=== PATIENT | female | born 1975 | race Caucasian/White ===

== ENCOUNTER 2021-08-31 12:54 | Outpatient (CLI) | payer OTHER, SELFPAY ==
--- NOTE | 2021-08-31 13:06 | MM_ITS ---
WS: [id number] BILATERAL 3D TOMOSYNTHESIS DIGITAL SCREENING MAMMOGRAPHY WITH CAD CLINICAL INFORMATION: SCREENING HISTORY: Screening mammogram. No current complaints. COMPARISON: None. TECHNIQUE: Bilateral CC and MLO views. FINDINGS: Scattered fibroglandular densities bilaterally. Incidental lucent centered calcification LEFT breast. No suspicious focal mass, asymmetry, calcifications, or architectural distortion. No evidence of mal ignancy. MM/[place] [id number] IMPRESSION: BI-RADS: 2-Benign FOLLOW UP: 1 Year Follow-up Recommend return to annual screening mammography.
== END 2021-08-31 12:55 | disposition home or self-care (01) ==
LOC: RAD 12:56
PROVIDERS: Visit Provider Nurse Practitioner Family
DX: Z12.31 Encounter for screening mammogram for malignant neoplasm of breast (principal)
CPT/HCPCS: 77063; 77067

== ENCOUNTER → 2022-07-13 09:00 | Outpatient (BNVA) | payer OTHER, SELFPAY | PROVIDERS: Visit Provider Obstetrics & Gynecology | DX: R63.5 Abnormal weight gain (principal) | CPT/HCPCS: 83036; 83525; 84443 ==

== ENCOUNTER 2022-09-07 11:20 | Outpatient (CLI) | payer OTHER, SELFPAY ==
--- NOTE | 2022-09-07 11:41 | MM_ITS ---
WS: [id number] VIEWS: MLO and CC views both breasts. 3D digital tomosynthesis is also included in this exam. Comparison made with prior exam of 08/31/2021. Findings: There was no sign of mass, architectural distortion or suspicious calcification in either breast. Sc attered areas of fibroglandular density MM/[place] [id number] Impression: BI-RADS: 2-Benign finding. FOLLOW-UP: 1 Year Follow-up This mammogram was also analyzed by the Computer Aided Detection System R2 [employer].
== END 2022-09-07 11:21 | disposition home or self-care (01) ==
LOC: RAD 11:33 → MOBLMAM 11:35
PROVIDERS: PCP Nurse Practitioner Family; Visit Provider Nurse Practitioner Family
DX: Z12.31 Encounter for screening mammogram for malignant neoplasm of breast (principal); M79.672 Pain in left foot; M79.671 Pain in right foot; Q66.89 Other specified congenital deformities of feet
CPT/HCPCS: 73630; 77063; 77067

== ENCOUNTER 2022-12-14 11:06 | Outpatient (CLI) | payer OTHER, SELFPAY ==
--- NOTE | 2022-12-14 11:00 | MR_ITS ---
WS: [id number] MRA HEAD TECHNIQUE: Axial 3-D TOF images obtained with axial images and axial, sagittal, and coronal 2-D refor matted images. CLINICAL INFORMATION: R51.9 - Headache, unspecified COMPARISON: None. FINDINGS: Distal vertebral arteries are patent. Basilar artery is patent. Normal vascularity to the [employer] territo ry bilaterally. Both ICAs are patent at the skull base. Normal vascularity to the PREM and MCA territories bilaterally . No evidence of proximal flow-limiting stenosis or aneurysm. IMPRESSION: Some images slightly degraded by motion artifact. Unremarkable intracranial MRA.
--- NOTE | 2022-12-14 11:15 | MR_ITS ---
WS: [id number] MRI HEAD WITH CONTRAST TECHNIQUE: Sagittal T1, T2 axial, T2 axial FLAIR, axial susceptibility weighted imaging, axial diffus ion weighted images, and coronal T2 images were obtained. Pre and post-T1 axial and post T1 coronal i mages. ADC and FSPGR images. CLINICAL INFORMATION: R51.9 - Headache, unspecified COMPARISON: None. FINDINGS: Some images degraded by motion No evidence of restricted diffusion to suggest acute ischemia. Ventricular system and basilar cistern s are patent. No suspicious intracranial signal normalities. Normal henning-white differentiation. Alice l posterior fossa. Normal vascular flow voids at the skull base. No extra-axial fluid collections. No evidence of mass or mass effect. Paranasal sinuses and mastoid air cells are well aerated. Normal pa rapharyngeal fat. 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 Normal fou rth ventricle. Mild inferior pointing of the cerebellar tonsils. Mild crowding at the foramen magnum. No hydrocephalus. Normal fourth ventricle. Normal optic chiasm and pituitary infundibulum. No hemosiderin on susceptibly weighted images. No abnormal gadolinium enhancement. Normal dural venous sinuses. No other suspicious findings. IMPRESSION: Some images degraded by motion 1. No evidence of restricted diffusion to suggest acute ischemia. 2. 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 Mild c rowding at the foramen magnum. Brainstem signal remains normal. No hydrocephalus. Recommend MRI cervi tamia spine to exclude cervical syrinx. 3. No suspicious intracranial signal normalities considering motion artifact. 4. No abnormal gadolinium enhancement. 5. No hemosiderin on susceptibility-weighted images.
[2022-12-14] MEDS: gadobenate dimeglumine 20 mL vial IV (12:16)
== END 2022-12-14 11:07 | disposition home or self-care (01) ==
LOC: RAD 11:06
PROVIDERS: PCP Nurse Practitioner Family; Visit Provider Psychiatry & Neurology Neurology
DX: G93.5 Compression of brain (principal); R51.9 Headache, unspecified
CPT/HCPCS: 70544; 70553; A9577

== ENCOUNTER → 2023-05-31 07:49 | Outpatient (BNVA) | payer OTHER, SELFPAY | PROVIDERS: PCP Nurse Practitioner Family; Visit Provider Podiatrist Foot & Ankle Surgery | DX: E11.42 Type 2 diabetes mellitus with diabetic polyneuropathy (principal); M21.6X1 Other acquired deformities of right foot; M21.6X2 Other acquired deformities of left foot; M62.469 Contracture of muscle, unspecified lower leg; M65.9 Synovitis and tenosynovitis, unspecified; Z79.84 Long term (current) use of oral hypoglycemic drugs | CPT/HCPCS: 73630 ==

== ENCOUNTER 2023-06-06 06:00 | Outpatient (RCR) | payer OTHER, SELFPAY | END 2023-06-19 23:59 | disposition home or self-care (01) | LOC: WPT 06:00 | PROVIDERS: Visit Provider Podiatrist Foot & Ankle Surgery | DX: M25.579 Pain in unspecified ankle and joints of unspecified foot (principal) | CPT/HCPCS: 97110; 97112; 97140; 97161; 97530 ==

== ENCOUNTER 2023-06-20 06:00 | Outpatient (RCR) | payer OTHER, SELFPAY | END 2023-07-20 23:59 | disposition home or self-care (01) | LOC: WPT 06:00 | PROVIDERS: Visit Provider Podiatrist Foot & Ankle Surgery | DX: M21.6X9 Other acquired deformities of unspecified foot (principal); M65.879 Other synovitis and tenosynovitis, unspecified ankle and foot | CPT/HCPCS: 97110; 97112; 97140; 97530 ==

== ENCOUNTER 2023-07-12 06:00 | Outpatient (RCR) | payer OTHER, SELFPAY | END 2023-07-20 23:59 | disposition home or self-care (01) | LOC: WPT 06:00 | PROVIDERS: Visit Provider Nurse Practitioner Family | DX: M54.12 Radiculopathy, cervical region (principal) | CPT/HCPCS: 97110; 97112; 97140; 97161; 97530 ==

== ENCOUNTER 2023-07-21 06:00 | Outpatient (RCR) | payer OTHER, SELFPAY | END 2023-08-19 23:59 | disposition home or self-care (01) | LOC: WPT 06:00 | PROVIDERS: Visit Provider Nurse Practitioner Family | DX: M54.12 Radiculopathy, cervical region (principal) | CPT/HCPCS: 97110; 97112; 97140; 97530 ==

== ENCOUNTER 2023-07-21 06:00 | Outpatient (RCR) | payer OTHER, SELFPAY | END 2023-08-19 23:59 | disposition home or self-care (01) | LOC: WPT 06:00 | PROVIDERS: Visit Provider Podiatrist Foot & Ankle Surgery | DX: M65.88 Other synovitis and tenosynovitis, other site (principal) | CPT/HCPCS: 97110; 97112; 97140 ==

== ENCOUNTER → 2023-07-30 09:02 | Outpatient (BNVA) | payer OTHER, SELFPAY | PROVIDERS: Visit Provider Podiatrist Foot & Ankle Surgery | DX: E11.42 Type 2 diabetes mellitus with diabetic polyneuropathy; M76.822 Posterior tibial tendinitis, left leg; M62.462 Contracture of muscle, left lower leg; M65.9 Synovitis and tenosynovitis, unspecified; Z79.84 Long term (current) use of oral hypoglycemic drugs | CPT/HCPCS: 73630 ==

== ENCOUNTER 2023-08-13 10:05 | Outpatient (RCR) | payer OTHER, SELFPAY | END 2023-08-14 23:59 | disposition home or self-care (01) | LOC: SPT 10:05 | PROVIDERS: Visit Provider Podiatrist Foot & Ankle Surgery | DX: M21.6X9 Other acquired deformities of unspecified foot (principal); M76.70 Peroneal tendinitis, unspecified leg; E11.42 Type 2 diabetes mellitus with diabetic polyneuropathy; M62.469 Contracture of muscle, unspecified lower leg | CPT/HCPCS: 97161; L3030 ==

== ENCOUNTER 2023-08-20 06:00 | Outpatient (RCR) | payer OTHER, SELFPAY | END 2023-09-19 23:59 | disposition home or self-care (01) | LOC: WPT 06:00 | PROVIDERS: Visit Provider Nurse Practitioner Family | DX: M54.12 Radiculopathy, cervical region (principal) | CPT/HCPCS: 97110; 97112; 97530 ==

== ENCOUNTER 2023-08-20 06:00 | Outpatient (RCR) | payer OTHER, SELFPAY | END 2023-09-19 23:59 | disposition home or self-care (01) | LOC: WPT 06:00 | PROVIDERS: Visit Provider Nurse Practitioner Family | DX: M54.32 Sciatica, left side (principal) | CPT/HCPCS: 97110 ==

== ENCOUNTER 2023-09-20 06:00 | Outpatient (RCR) | payer OTHER, SELFPAY | END 2023-10-20 23:59 | disposition home or self-care (01) | LOC: WPT 06:00 | PROVIDERS: Visit Provider Nurse Practitioner Family | DX: M54.12 Radiculopathy, cervical region (principal) | CPT/HCPCS: 97110; 97112; 97530 ==

== ENCOUNTER 2024-05-15 06:00 | Outpatient (CLI) | payer OTHER, SELFPAY | END 2024-05-15 06:01 | disposition home or self-care (01) | LOC: LAB 05-20 13:50 | PROVIDERS: PCP Family Medicine; Visit Provider Orthopaedic Surgery | DX: Z01.818 Encounter for other preprocedural examination (principal) | CPT/HCPCS: 36415; 80053; 81001; 83036; 85025 ==

== ENCOUNTER 2024-05-29 13:17 | Outpatient (CLI) | payer OTHER, SELFPAY ==
[2024-05-29 13:51] LABS: Estmated Average Glucose 278; Hemoglobin A1C 11.3 % (4.0-6.0)
== END 2024-05-29 13:18 | disposition home or self-care (01) ==
PROVIDERS: PCP Family Medicine; Visit Provider Orthopaedic Surgery
DX: Z01.818 Encounter for other preprocedural examination (principal)
CPT/HCPCS: 36415; 83036

== ENCOUNTER 2024-08-07 06:58 | Outpatient (CLI) | payer OTHER, SELFPAY ==
--- NOTE | 2024-08-07 07:15 | MR_ITS ---
WS: [id number] MRI LUMBAR SPINE NONCONTRAST HISTORY: Back pain, LEFT lower extremity pain and weakness. COMPARISON: 11/08/2023 TECHNIQUE: Sagittal and axial multisequence imaging is submitted. Normal lumbar alignment with no compression fractures or marrow edema. Moderate disc space narrowing and desiccation at L4-5. Conus terminates normally at L1-2 disc level. L1-L2: Normal. L2-L3: No stenosis. Mild ligamentum flavum hypertrophy. L3-L4: Mild annular disc bulging with mild facet and ligamentum flavum hypertrophy. Very mild disc encroachment upon the subarticular recesses and traversing L4 nerve roots. L4-L5: Large extruded disc extends cephalad from the disc level posterior to the L4 vertebral body. Protrusion extends into the subarticular recesses deforming the ventral thecal sac. Displacement of the traversing L5 nerve roots, LEFT greater than RIGHT. Transverse diameter of 11 mm in superior-inferior diameter of 19 mm. Central, subarticular recess and mild LEFT foraminal stenosis. There is mild disc bulging into the LEFT foramen. Fluid in the facet joints. L5-S1: Mild disc bulging. Incompletely visualized LEFT renal cyst measures at least 5.8 cm. Liver is enlarged at 19.6 cm. MR/MR lumbar spine wo con* [id number] IMPRESSION: 1. Large extruded disc at L4-5. Disc has significantly increased in size and e xtrusion since the prior MRI of 11/08/2023. Disc extends cephalad from the disc level and into the subarticular recesses. There is significant contact on the t raversing L5 nerve roots, LEFT greater than RIGHT. Disc measures 11 mm transver sely and 19 mm superior-inferior. 2. Very minimal disc encroachment upon the subarticular recesses at L3-4 and t he traversing L4 nerve roots.
== END 2024-08-07 06:59 | disposition home or self-care (01) ==
PROVIDERS: Visit Provider Orthopaedic Surgery
DX: M51.26 Other intervertebral disc displacement, lumbar region (principal)
CPT/HCPCS: 72148

== ENCOUNTER 2024-08-13 09:44 | Day surgery (SDC) | payer OTHER, SELFPAY ==
[2024-08-13] VITALS (11 sets, daily range): BP systolic 117–183; BP diastolic 75–98; PULSE 89–112; RESP 16–20; TEMP 36.2–36.4; O2SAT 90–99; BMI 33.9
--- NOTE | 2024-08-13 10:55 | ANES.PREANE2 ---
Pre-Anesthetic Assessment Height/Weight: Height 1.68 m Weight 95.254 kg Temp Pulse Resp BP Pulse Ox O2 Del Method 97.6 F 89 18 183/98 95 Room Air 08/13/24 10:49 08/13/24 10:49 08/13/24 10:49 08/13/24 10:49 08/13/24 10:49 08/13/24 10:49 Preop Diagnosis: Lumbar stenosis neurogenic claudication Operation Date: 08/13/24 11:35 Proposed Procedures p Lumbar Spine Decompression Lumbar Decompression(Not Applicable) - Brayan Martin, DO Familial anesthetic complications: None Was Beta Apoorva taken within 24 hours: N/A Was Clonidine taken within 24 hours: N/A Last intake: > 8 hrs Social No alcohol and No tobacco Exam alert, oriented x 3, clear to auscultation bilaterally and regular rate & rhythm Airway Mallampati: Class II Dentition: false GI Gastroesophageal Reflux Disease Metabolic Diabetes Mellitus and Morbid Obesity Anesthetic Plan ASA status: 2 Anesthesia: General Risk of > 500 ml blood loss (7ml/kg in children): No Medications/Allergies Home Medications ?Medication ?Instructions ?Recorded ?Confirmed ?Last Taken ?Type losartan 25 mg tablet 25 mg PO DAILY 10/06/21 08/12/24 05/29/24 History estradiol 2 mg tablet 2 mg PO DAILY #90 tabs 07/13/22 08/12/24 Unknown Rx albuterol sulfate 90 mcg/actuation 2 inh inhalation Q4H PRN shortness 11/11/22 08/12/24 Unknown Rx aerosol inhaler of breath or wheezing #6.7 grams lansoprazole 30 mg delayed 30 mg PO DAILY 12/28/22 08/12/24 05/29/24 History release,disintegrating tablet (Prevacid SoluTab) blood sugar diagnostic (True #10 ea 05/31/23 07/29/24 Unknown History Metrix Glucose Test Strip) topiramate 100 mg tablet 100 mg PO DAILY 05/31/23 08/12/24 08/05/24 History sole supports #1 ea 07/30/23 07/29/24 Unknown Rx rizatriptan 10 mg tablet See Rx Instructions PO .COMPLEX 12/20/23 08/12/24 Unknown History Diabetic Shoes with 3 sets of #1 ea 02/19/24 07/29/24 Unknown Rx insoles dicyclomine 10 mg capsule 10 mg PO QID 04/18/24 08/12/24 05/29/24 History famotidine 20 mg tablet 20 mg PO DAILY 04/18/24 08/12/24 Unknown History linaclotide 72 mcg capsule 72 mcg PO DAILY 04/18/24 08/12/24 08/05/24 History (Linzess) ondansetron 4 mg disintegrating 4 mg PO Q6H PRN Nausea And Vomiting 04/18/24 08/12/24 Unknown History tablet riboflavin (vitamin B2) 400 mg 400 mg PO DAILY 04/18/24 08/12/24 Unknown History tablet estradiol 0.01% (0.1 mg/gram) See Rx Instructions .Route 04/24/24 08/12/24 Unknown Rx vaginal cream .COMPLEX #42.5 grams dulaglutide 1.5 mg/0.5 mL 1.5 mg SUBCUT .WEEKLY 05/29/24 08/12/24 07/27/24 History subcutaneous pen injector (Trulicity) hydrocodone 10 mg-acetaminophen 1 tab PO DAILY 05/29/24 08/12/24 08/12/24 History 325 mg tablet baclofen 10 mg tablet 10 mg PO TID 07/18/24 08/12/24 08/12/24 History nortriptyline 25 mg capsule 25 mg PO DAILY 07/18/24 08/12/24 08/12/24 History pregabalin 100 mg capsule 100 mg PO TID 07/18/24 08/12/24 08/09/24 History duloxetine 60 mg capsule,delayed 120 mg PO QDAY 08/12/24 08/12/24 Unknown History release (Cymbalta) meloxicam 15 mg tablet 15 mg PO DAILY 08/12/24 08/12/24 08/08/24 History Allergies Allergy/AdvReac Type Severity Reaction Status Date / Time Unknown antiviral med Allergy Severe Swelling. Uncoded 08/12/24 16:14 PFSH Anesthesia Medical History Psychiatric care Surgical History History of hysterectomy H/O tubal ligation Family History Mother Diabetes Sister Diabetes Grandmother Diabetes Other Suicide Denies family history of Cervical cancer Colon cancer Ovarian cancer Breast cancer Hypertension Uterine cancer Thyroid disease Stroke Social History Smoking and tobacco/nicotine status: former use of tobacco/nicotine Quit status (tobacco/nicotine): has quit using Year quit tobacco: 2013 Second hand smoke exposure: No Alcohol intake: former Substance/Drug Use: former Date of last use: Marijuana- 1991
[2024-08-13] MEDS: sodium chloride 0.9% 1,000 ML 30 ML IV (11:18)
--- NOTE | 2024-08-13 11:53 | W.PM.OPSUD ---
Surgery/Procedure H&P Update DATE OF PROCEDURE: August 13, 2024 DATE H&P PERFORMED: 07/29/24 H&P UPDATE INFORMATION: I have reviewed H&P completed within last 30 days, I have examined patient prior to procedure and No changes to prior documentation PREOP DIAGNOSIS: Lumbar stenosis neurogenic claudication PLANNED PROCEDURE: Operation Date: 08/13/24 11:35 Proposed Procedures p Lumbar Spine Decompression Lumbar Decompression(Not Applicable) - Brayan Martin DO
[2024-08-13] MEDS: ceFAZolin 2,000 mg SDV 2000 MG IVP (12:16)
[2024-08-13] MEDS: lidocaine-epi 1% 20 mL INJ INJECTION (12:45)
--- NOTE | 2024-08-13 13:34 | P.OP_ITS ---
Operative Report Date of procedure: August 13, 2024 Pre-op diagnosis: Lumbar stenosis with neurogenic claudication; left L4-5 disc herniation with radiculopathy Post-op diagnosis: same Procedure done: Left L4-5 laminectomy with partial facetectomy and discectomy Surgeon: Brayan Martin DO Estimated blood loss (mL): 25 Procedure: Left L4-5 laminectomy with partial facetectomy and discectomy Patient is brought to the operative suite. After undergoing anesthesia they are placed in the prone position. All areas of impingement are well padded. Patient is then prepped and draped in the normal sterile fashion. A skin incision is made over the L4/5 level. This is confirmed under c-arm gu idance. A series of dilators are passed and the tubular retractor is docked on the L4 lamina. A bovie is used to clear the soft tissue off the lamina and the L 4/5 facet joint. A high speed elan is then used to perform the laminectomy and take down the medial aspect of the L 4/5 facet joint. A kerrison rongeure was then used to take down the remaining lamina and smooth the edge of the laminectomy up to the point where the ligamentum flavum attaches. Attention was then brought to the medial aspect of the facet joint. The remaining medial aspect of the superior and inferior aspect of the facet joint were taken down with the kerrison from the pedicle of L4 to L 5. The facet joint had significant hypertrophy. Attention was then brought to the Ligamentum Flavum. The ligament was taken do wn from the lamina of L4 to L5 and out medially to the remaining facet joint. The ligament was thick. The dura was then exposed. The dura was in good repair. L5 nerve was reflected medially the disc was identified there was several large fragments of removed. Once these disc fragments were removed dissipations and irrigated name 3 small fragments removed. The other free fragment discs were all removed L5 nerve was felt to be intact and did repair and completely free of any compression. The L4 nerve was then traced with a curette out the L4/5 foramen and found to be adequately decompressed. The L5 nerve was traced with a curette around the L5 pedicle. The lateral recess was opened with a kerrison helping to further decompress the L5 nerve. Wound is then irrigated copiously with saline and surgiflo is used to stop any bleeding. The tubular retractor is removed and the wound is closed with vicryl and monocryl suture. Glue is then used to protect the wound. A sterile dressing is then placed. Patient was then placed in the supine position and transferred to the PACU in stable condition.
[2024-08-13] MEDS: fentaNYL 50 mcg/mL INJ 2mL IVP ×2 (14:16→14:22)
[2024-08-13] MEDS: HYDROcodone-acetaminophen 10-325 mg Tablet 1 TAB PO (14:46)
--- NOTE | 2024-08-13 15:15 | XR_ITS ---
WS: [id number] Exam: XR lumbar spine 1V [id number] Date/Time of Exam: 08/13/2024 3:15 PM Reason For Exam: or pic, A single limited AP image of the lower lumbar spine is submitted for preoperative localization purposes.
--- NOTE | 2024-08-13 15:15 | ANE.PACU2 ---
Inpatient post-anesthesia follow up: Airway intact: Yes Vital signs: Temperature 97.6 F Pulse Rate 99 Respiratory Rate 17 Blood Pressure 126/75 Pulse Oximetry 90 Oxygen Delivery Me thod Room Air Oxygen Flow Rate 6 Fraction of Inspir ed Oxygen Hydration adequate: Yes Nausea and vomiting: No Pain level: 1 Mental status: Baseline
== END 2024-08-13 15:15 | disposition home or self-care (01) ==
PROVIDERS: PCP Nurse Practitioner Family; Visit Provider Orthopaedic Surgery
PROC: (CPT 63005; principal; 2024-08-13 11:15)
DX: M48.062 Spinal stenosis, lumbar region with neurogenic claudication (principal); M51.16 Intervertebral disc disorders with radiculopathy, lumbar region; K21.9 Gastro-esophageal reflux disease without esophagitis; E11.9 Type 2 diabetes mellitus without complications; E66.01 Morbid (severe) obesity due to excess calories; Z68.33 Body mass index [BMI] 33.0-33.9, adult; Z87.891 Personal history of nicotine dependence
CPT/HCPCS: 63047; 72020; 76000; J0690; J2250; J2405; J2704; J3010; J3490; J7030; J9999

== ENCOUNTER 2024-08-19 05:00 | Outpatient (RCR) | payer OTHER, SELFPAY | END 2024-09-18 23:59 | disposition home or self-care (01) | LOC: WPT 05:00 | PROVIDERS: Visit Provider Orthopaedic Surgery | DX: Z47.89 Encounter for other orthopedic aftercare (principal) | CPT/HCPCS: 97110; 97112; 97161; 97530 ==

== ENCOUNTER 2024-09-19 05:00 | Outpatient (RCR) | payer OTHER, SELFPAY | END 2024-10-19 23:59 | disposition home or self-care (01) | LOC: WPT 05:00 | PROVIDERS: Visit Provider Orthopaedic Surgery | DX: Z47.89 Encounter for other orthopedic aftercare (principal) | CPT/HCPCS: 97110; 97112; 97140; 97530 ==

== ENCOUNTER 2024-10-20 05:00 | Outpatient (RCR) | payer OTHER, SELFPAY | END 2024-11-18 23:59 | disposition home or self-care (01) | LOC: WPT 05:00 | PROVIDERS: Visit Provider Orthopaedic Surgery | DX: M21.371 Foot drop, right foot (principal); M54.9 Dorsalgia, unspecified; G89.29 Other chronic pain | CPT/HCPCS: 97110; 97112; 97140; 97530 ==

== ENCOUNTER 2024-12-18 08:33 | Outpatient (RCR) | payer OTHER, SELFPAY | END 2024-12-19 23:59 | disposition home or self-care (01) | LOC: WPT 08:33 | PROVIDERS: Visit Provider Orthopaedic Surgery | DX: M54.9 Dorsalgia, unspecified (principal); G89.29 Other chronic pain | CPT/HCPCS: 97110; 97112; 97530 ==

== ENCOUNTER 2025-01-22 09:30 | Outpatient (CLI) | payer OTHER, SELFPAY | END 2025-01-22 09:31 | disposition home or self-care (01) | LOC: SPT 09:32 | PROVIDERS: PCP Nurse Practitioner Family; Visit Provider Podiatrist Foot & Ankle Surgery | DX: Z46.89 Encounter for fitting and adjustment of other specified devices (principal); M25.373 Other instability, unspecified ankle | CPT/HCPCS: L3030 ==